=== PATIENT | female | born 1970 | race Caucasian/White ===

== ENCOUNTER 2018-10-07 18:07 | Emergency (ER) | payer OTHER ==
[~2018-10-07] VITALS: Ht 175.3 cm; Wt 79.7 kg
[2018-10-07 18:07] VITALS: BP 132/79
[2018-10-07] MEDS ORDERED: IBUPROFEN 800 MG TABLET. PO ONE (18:22)
--- NOTE | 2018-10-07 18:28 | ED.ADGEN ---
Adult General Chief Complaint Chief Complaint hand pain HPI HPI Very pleasant 48 years old female presented emergency department with left hand pain after fall her left hand became under her twisted she is able to move all direction that very painful minimal swelling noticed no active bleeding Review of Systems Review of Systems Constitutional: Denies fever or chills [] Eyes: Denies change in visual acuity, redness, or eye pain [] HENT: Denies nasal congestion or sore throat [] Respiratory: Denies cough or shortness of breath [] Cardiovascular: No additional information not addressed in HPI [] GI: Denies abdominal pain, nausea, vomiting, bloody stools or diarrhea [] : Denies dysuria or hematuria [] Musculoskeletal: Denies back pain Integument: Denies rash or skin lesions [] Neurologic: Denies headache, focal weakness or sensory changes [] Endocrine: Denies polyuria or polydipsia [] All other systems were reviewed and found to be within normal limits, except as documented in this note. Current Medications Current Medications Current Medications Medications (Trade) Dose Ordered Sig/Christianne Start Time Stop Time Status Last Admin Dose Admin Ibuprofen (Motrin) 800 mg 1X ONCE 10/07/18 18:30 10/07/18 18:31 DC 10/07/18 18:28 800 MG Allergies Allergies Allergies Coded Allergies Type Severity Reaction Last Updated Verified No Known Drug Allergies 10/07/18 No Physical Exam Physical Exam Constitutional: Well developed, well nourished, no acute distress, non-toxic appearance. [] HENT: Normocephalic, atraumatic, bilateral external ears normal, oropharynx moist, no oral exudates, nose normal. [] Eyes: PERRLA, EOMI, conjunctiva normal, no discharge. [] Neck: Normal range of motion, no tenderness, supple, no stridor. [] Cardiovascular:Heart rate regular rhythm, no murmur [] Lungs & Thorax: Bilateral breath sounds clear to auscultation [] Abdomen: Bowel sounds normal, soft, no tenderness, no masses, no pulsatile masses. [] Skin: Warm, dry, no erythema, no rash. [] Back: No tenderness, no CVA tenderness. [] Extremities: Left hand tender swollen no restriction movement able to move it in all directions against resistance Current Patient Data Vital Signs Vital Signs Date Time Temp Pulse Resp B/P (MAP) Pulse Ox O2 Delivery O2 Flow Rate FiO2 3/23/19 18:07 87 18 98 EKG EKG [] Radiology/Procedures Radiology/Procedures [] Course & Med Decision Making Course & Med Decision Making Pertinent Labs and Imaging studies reviewed. (See chart for details) [] Final Impression Final Impression [] Problems: (1) Sprain and strain of left hand Dragon Disclaimer Dragon Disclaimer This electronic medical record was generated, in whole or in part, using a voice recognition dictation system. JEN LANCE MD Oct 07, 2018 18:28
[2018-10-07] MEDS ORDERED: IBUPROFEN 400 MG TABLET. PO ONE (18:30)
--- NOTE | 2018-10-07 18:46 | RAD ---
HAND LEFT 3V History: Injury today after fall. Hyperextension of all fingers 2-5. Comparison: None. Findings: 3 views of the left hand are submitted. No acute fracture or dislocation is identified. Impression: 1. No acute osseous abnormality is identified. Electronically signed by: Jayson Cortés MD (10/07/2018 6:43 PM) [facility]
== END 2018-10-07 19:35 | disposition home or self-care (01) ==
LOC: ER 18:07
DX: S63.92XA Sprain of unspecified part of left wrist and hand, initial encounter (principal); W18.39XA Other fall on same level, initial encounter; Y93.89 Activity, other specified; Y92.89 Other specified places as the place of occurrence of the external cause; Y99.8 Other external cause status
CPT/HCPCS: 29125; 73130; 99283